=== PATIENT | female | born 1995 | race Caucasian/White ===

== ENCOUNTER 2018-10-26 19:46 | Emergency (ER) | payer OTHER ==
[~2018-10-26] VITALS: Ht 154.9 cm; Wt 108.5 kg
[2018-10-26] MEDS ORDERED: PROAIR HFA8.5 GM INH ×2 (20:12→21:17)
[2018-10-26] MEDS ORDERED: SYNTHROID25 MC1 PO (20:13)
[2018-10-26] MEDS ORDERED: AMOXICILLIN 50500 MG PO (20:13)
[2018-10-26] MEDS ORDERED: OMEPRAZOLE 20 M20 M1 PO (20:13)
[2018-10-26 20:39] LABS: URINE BILIRUBIN NEGATIVE (Negative); URINE BLOOD NEGATIVE (Negative); URINE CLARITY CLEAR; URINE COLOR YELLOW; URINE GLUCOSE-RANDOM NEGATIVE (Negative); URINE KETONES NEGATIVE (Negative); URINE LEUKOCYTES-REFLEX NEGATIVE (Negative); URINE NITRITE-REFLEX NEGATIVE (Negative); URINE PROTEIN NEGATIVE (Negative); URINE UROBILINOGEN 0.2 E.U./dl (0.2-1.0)
[2018-10-26 20:44] LABS: ABSOLUTE LYMPHOCYTES 1.5 thou/uL (0.8-5.3); ABSOLUTE MONOCYTES 0.5 thou/uL (0.0-1.2); ABSOLUTE NEUTROPHILS 1.4 thou/uL (1.6-8.1); BASOPHILS 0.7 %; EOSINOPHILS 0.1 %; HEMATOCRIT 41.3 % (37.0-47.0); HEMOGLOBIN 13.9 gm/dL (12.0-15.0); LYMPHOCYTES 43.3 %; MCH 29.1 pg (26.0-34.0); MCHC 33.8 g/dL (28.0-37.0); MCV 86.1 fL (80.0-100.0); MONOCYTES 15.2 %; MPV 8.5 fl. (7.2-11.1); NUCLEATED RBCS 0 /100WBC; PLATELET COUNT* 248 thou/uL (150-400); POLYS 40.7 %; RBC 4.79 mil/uL (4.20-5.00); RDW-CV 13.8 % (10.5-14.5); WBC 3.4 thou/uL (4.0-11.0)
[2018-10-26] MEDS ORDERED: KEFLEX500 M1 PO (20:46)
[2018-10-26 20:52] LABS: CALCIUM 8.2 mg/dL (8.5-10.1); CREATININE 0.9 mg/dL (0.6-1.3); POTASSIUM 3.5 mmol/L (3.5-5.1)
[2018-10-26 21:02] LABS: ALBUMIN 3.3 g/dL (3.4-5.0); TOTAL BILIRUBIN 0.4 mg/dL (<0.1-1.0); TOTAL PROTEIN 7.6 g/dL (6.4-8.2)
[2018-10-26] MEDS ORDERED: PROMETHAZINE V120 ML PO (21:17)
[2018-10-26] MEDS ORDERED: TESSALON PERLE100 MG PO (21:17)
[2018-10-26] MEDS ORDERED: MEDROLDOSEPACK PO (21:17)
[2018-10-26 23:50] VITALS: BP 121/65
== END 2018-10-26 23:51 | disposition home or self-care (01) ==
LOC: M.ERS 19:46
PROVIDERS: Physician Assistant
DX: J20.9 Acute bronchitis, unspecified (principal); B34.9 Viral infection, unspecified; H66.93 Otitis media, unspecified, bilateral; J45.909 Unspecified asthma, uncomplicated; Z88.2 Allergy status to sulfonamides